=== PATIENT | male | born 1955 | race Caucasian/White ===

== ENCOUNTER 2020-08-10 16:06 | Inpatient (IN) ==
[2020-08-10 16:47] LABS: Basophils % 0.1 % (0.0-0.8); Hematocrit 26.7 VOL% (42.0-52.0); Hemoglobin 8.6 GM/DL (14.0-18.0); Immature Granulocytes % 0.8 %; Immature Granulocytes Absolute 0.11 #; Lymphocytes # 0.2 10*3/uL (1.4-4.0); Lymphocytes % 1.2 % (21.2-54.2); Mean Corpuscular HGB Conc 32.2 GM/DL (32-36); Mean Corpuscular Volume 103.9 FL (87-102); Mean Platelet Volume 10.5 FL (9.6-12.0); Neutrophils % 94.9 % (38.7-73.9); Platelet Count 229 T/CUMM (130-400); Red Blood Count 2.57 MC/CUMM (3.8-5.5); Red Cell Distribution Width 15.1 % (9.3-17.3)
[2020-08-10] MEDS ORDERED: SODIUM CHLORIDE 0.9% 1,000 ML IV STA (16:48)
[2020-08-10 17:07] LABS: INR 1.1; PT Patient Result 11.9 SECS (9.8-11.9); Partial Thromboplastin Time 34.9 SECS (23.9-33.8)
[2020-08-10 17:25] LABS: Albumin 2.4 G/DL (3.4-5.0); Bilirubin,Total 1.3 MG/DL (0.2-1.0); Calcium 7.4 MG/DL (8.5-10.1); Osmolality,Calculated 313.8 MOS/KG (273-304); Total Protein 6.4 G/DL (6.4-8.3)
[2020-08-10 18:15] LABS: Band Neutrophils 1 % (0-10); Lymphocytes 2 % (20-55); Nucleated Red Blood Cells 1 (0-5); Segmented Neutrophils 95 % (50-85); Total Cells Counted 100
[2020-08-10 18:16] LABS: Macrocytosis 1+; Platelet Estimate Adequate
[2020-08-10 18:17] LABS: Anisocytosis Slight
[2020-08-10] MEDS ORDERED: guaiFENesin/DM ER 600-30 MG TABLET PO PRN (21:30)
[2020-08-10] MEDS ORDERED: DEXTROSE 50% 25 GM/50 ML SYRINGE IV PRN (21:30)
[2020-08-10] MEDS ORDERED: hydrALAZINE 20 MG/1 ML VIAL IV PRN (21:30)
[2020-08-10] MEDS ORDERED: GLUCAGON 1 MG VIAL IM PRN (21:30)
[2020-08-10] MEDS ORDERED: ONDANSETRON 4 MG/2 ML VIAL IV PRN (21:30)
[2020-08-10] MEDS ORDERED: ACETAMINOPHEN 325 MG TABLET PO PRN (21:30)
[2020-08-10] MEDS ORDERED: CETIRIZINE 10 MG TABLET PO PRN (21:35)
[2020-08-10] MEDS ORDERED: DEXTROSE 50% 25 GM/50 ML VIAL IV PRN (21:45)
[2020-08-10] MEDS: cefTRIAXone 1,000 MG in SYRINGE 1 EACH IV SCH (22:28)
[2020-08-10] MEDS ORDERED: SODIUM CHLORIDE 0.9% 100 ML IV ONE (22:33)
[2020-08-10 23:10] LABS: Amorphous Crystals,Urine Occasional /HPF (Few); Bilirubin,Urine Negative (Negative); Blood, Urine Moderate mg/dL (Negative); Glucose,Urine (UA) Negative (Negative); Ketones,Urine 5 mg/dL (Negative); Nitrite,Urine Negative (Negative); Protein,Urine >=500 MG/DL; RBC,Urine 18 /HPF (0-4); Squamous Epithelial Cell,Urine Occasional /HPF (0-10); Triple Phosphate Crystal,Urine Few /HPF (Few); Urine Appearance CLOUDY (Clear); Urine Color Yellow (Yellow); Urine Specific Gravity 1.011 (1.001-1.035); Urine Urobilinogen < 2.0 EU/DL (0.2-1.0); WBC,Urine 17 /HPF (0-6)
[2020-08-10] MEDS: SODIUM CHLORIDE 0.45% 1,000 ML IV SCH (23:53)
[2020-08-10] MEDS: SIMVASTATIN 40 MG TABLET PO SCH (23:54)
[2020-08-10] MEDS: ENOXAPARIN 30 MG/0.3 ML SYRINGE SUBCUT SCH (23:54)
[2020-08-10] MEDS: AZITHROMYCIN INJ 500 MG in SODIUM CHLORIDE 0.9% 250 ML IV SCH (23:54)
[2020-08-11] MEDS: ALBUTEROL INHALER 18 GM INH SCH ×4 (00:57→21:00)
[2020-08-11] MEDS ORDERED: cloNIDine 0.1 MG TABLET PO PRN (05:16)
[2020-08-11 05:19] LABS: Basophils % 0.1 % (0.0-0.8); Hematocrit 24.1 VOL% (42.0-52.0); Hemoglobin 7.8 GM/DL (14.0-18.0); Immature Granulocytes % 0.8 %; Immature Granulocytes Absolute 0.11 #; Lymphocytes # 0.4 10*3/uL (1.4-4.0); Lymphocytes % 2.9 % (21.2-54.2); Mean Corpuscular HGB Conc 32.4 GM/DL (32-36); Mean Corpuscular Volume 104.3 FL (87-102); Mean Platelet Volume 9.7 FL (9.6-12.0); Monocytes % 4.1 % (1.7-12.7); Neutrophils % 92.1 % (38.7-73.9); Platelet Count 238 T/CUMM (130-400); Red Blood Count 2.31 MC/CUMM (3.8-5.5); White Blood Count 13.6 T/CUMM (4-12)
[2020-08-11 05:39] LABS: Hypochromasia 2+; Lymphocytes 2 % (20-55); Microcytosis Slight; Ovalocytes Slight; Platelet Estimate Adequate; Segmented Neutrophils 95 % (50-85); Total Cells Counted 100
[2020-08-11 05:46] LABS: Alanine Aminotransferase 13 U/L (16-61); Albumin 2.2 G/DL (3.4-5.0); Alkaline Phosphatase 85 U/L (45-117); Aspartate Amino Transferase 14 U/L (0-37); Bilirubin,Total < 0.39 MG/DL (0.2-1.0); Blood Urea Nitrogen 129 MG/DL (7-18); Calcium 8.1 MG/DL (8.5-10.1); Estimated Glom Filtration Rate 6 ML/MIN; Glucose 74 MG/DL (74-106); HDL Cholesterol 23 MG/DL (40-60); Osmolality,Calculated 315.7 MOS/KG (273-304); Risk Ratio 4.52; Total Protein 6.7 G/DL (6.4-8.3); Triglycerides 161 MG/DL (2-150); VLDL CHOLESTEROL 32.2 MG/DL
[2020-08-11] MEDS ORDERED: MAGNESIUM SULF RIDER 2 GM in PREMIX 1 EACH IV ONE ×2 (08:25→08:34)
[2020-08-11] MEDS: ZINC SULFATE 220 MG CAPSULE PO SCH (09:56)
[2020-08-11] MEDS: SODIUM CHLORIDE 0.45% 1,000 ML IV SCH (09:56)
[2020-08-11] MEDS: PANTOPRAZOLE 40 MG TABLET PO SCH (09:56)
[2020-08-11] MEDS: GABAPENTIN 100 MG CAPSULE PO SCH (09:56)
[2020-08-11] MEDS: ASCORBIC ACID 500 MG TABLET PO SCH ×2 (09:56→20:59)
[2020-08-11] MEDS: ERGOCALCIFEROL 50,000 UNIT CAPSULE PO SCH (09:57)
[2020-08-11] MEDS ORDERED: SODIUM CHLORIDE 0.9% 1,000 ML IV PRN (13:53)
[2020-08-11] MEDS: DEXAMETHASONE 4 MG/1 ML VIAL IV SCH (13:57)
[2020-08-11 14:58] LABS: % Iron Saturation 8.8 % (18-50); Ferritin 513.2 ng/ml (26-388)
[2020-08-11 15:25] LABS: Folate 5.7 NG/ML (5.4-24.0)
[2020-08-11] MEDS ORDERED: EPOETIN ALFA-EPBX 10,000 UNIT/ML VIAL IV PRN (16:18)
[2020-08-11] MEDS: hydrALAZINE 25 MG TABLET PO SCH ×2 (16:28→21:00)
[2020-08-11] MEDS: CYCLOBENZAPRINE 10 MG TABLET PO SCH (20:59)
[2020-08-11] MEDS: ENOXAPARIN 30 MG/0.3 ML SYRINGE SUBCUT SCH (21:00)
[2020-08-11] MEDS: METOPROLOL TARTRATE 25 MG TABLET PO SCH (21:00)
[2020-08-11] MEDS: SIMVASTATIN 40 MG TABLET PO SCH (21:00)
[2020-08-11] MEDS: cefTRIAXone 1,000 MG in SYRINGE 1 EACH IV SCH (22:15)
[2020-08-11] MEDS: SODIUM BICARB INJ 150 MEQ in STERILE WATER INJ 850 ML IV SCH (22:15)
[2020-08-11] MEDS: AZITHROMYCIN INJ 500 MG in SODIUM CHLORIDE 0.9% 250 ML IV SCH (22:16)
[2020-08-12] MEDS: ALBUTEROL INHALER 18 GM INH SCH ×4 (02:09→21:25)
[2020-08-12] MEDS: ASCORBIC ACID 500 MG TABLET PO SCH ×2 (08:00→21:22)
[2020-08-12] MEDS: PANTOPRAZOLE 40 MG TABLET PO SCH (08:00)
[2020-08-12 08:30] LABS: Hepatitis B Core IgM Quant 0.06 Index; Hepatitis B Surface Ag Quant < 0.10 Index; Hepatitis B Surface Ag Result Negative (Negative); Hepatitis C Virus Ab Quant 0.11 Index; Hepatitis C Virus Ab Result Negative (Negative)
[2020-08-12] MEDS: DEXAMETHASONE 4 MG/1 ML VIAL IV SCH (09:29)
[2020-08-12] MEDS: hydrALAZINE 25 MG TABLET PO SCH ×3 (09:29→21:22)
[2020-08-12] MEDS: METOPROLOL TARTRATE 25 MG TABLET PO SCH ×2 (09:29→21:22)
[2020-08-12] MEDS: GABAPENTIN 100 MG CAPSULE PO SCH (09:30)
[2020-08-12 10:20] LABS: INR 1.1; PT Patient Result 11.7 SECS (9.8-11.9)
[2020-08-12 10:38] LABS: Ferritin 455.3 ng/ml (26-388)
[2020-08-12] MEDS: SODIUM CHLORIDE 0.45% 1,000 ML IV SCH (11:49)
[2020-08-12] MEDS: SODIUM BICARB INJ 150 MEQ in STERILE WATER INJ 850 ML IV SCH ×2 (19:03→21:26)
[2020-08-12] MEDS: CYCLOBENZAPRINE 10 MG TABLET PO SCH (21:21)
[2020-08-12] MEDS: cefTRIAXone 1,000 MG in SYRINGE 1 EACH IV SCH (21:23)
[2020-08-12] MEDS: ENOXAPARIN 30 MG/0.3 ML SYRINGE SUBCUT SCH (21:23)
[2020-08-12] MEDS: SIMVASTATIN 40 MG TABLET PO SCH (21:25)
[2020-08-13] MEDS: ALBUTEROL INHALER 18 GM INH SCH ×4 (00:13→18:45)
[2020-08-13] MEDS: SODIUM CHLORIDE 0.45% 1,000 ML IV SCH ×2 (00:20→18:52)
[2020-08-13 06:18] LABS: Basophils % 0.2 % (0.0-0.8); Eosinophils % 0.2 % (0.00-10.9); Hematocrit 25.5 VOL% (42.0-52.0); Hemoglobin 8.8 GM/DL (14.0-18.0); Immature Granulocytes % 2.1 %; Immature Granulocytes Absolute 0.21 #; Lymphocytes # 0.5 10*3/uL (1.4-4.0); Lymphocytes % 4.8 % (21.2-54.2); Mean Corpuscular HGB Conc 34.5 GM/DL (32-36); Mean Corpuscular Volume 94.4 FL (87-102); Mean Platelet Volume 11.2 FL (9.6-12.0); Monocytes % 5.6 % (1.7-12.7); NRBC # 0.05 10*3/uL; Neutrophils % 87.1 % (38.7-73.9); Platelet Count 217 T/CUMM (130-400); White Blood Count 9.9 T/CUMM (4-12)
[2020-08-13 06:25] LABS: Calcium 7.4 MG/DL (8.5-10.1); Osmolality,Calculated 297.2 MOS/KG (273-304)
[2020-08-13 06:30] LABS: Albumin 2.1 G/DL (3.4-5.0); Bilirubin,Total 0.5 MG/DL (0.2-1.0); Calcium 7.3 MG/DL (8.5-10.1); Osmolality,Calculated 295.4 MOS/KG (273-304); Total Protein 6.5 G/DL (6.4-8.3)
[2020-08-13 06:45] LABS: Lymphocytes 4 % (20-55); Nucleated Red Blood Cells 1 (0-5); Platelet Estimate Normal; Segmented Neutrophils 90 % (50-85); Total Cells Counted 100
[2020-08-13 06:46] LABS: Hypochromasia Slight
[2020-08-13] MEDS: PANTOPRAZOLE 40 MG TABLET PO SCH (08:16)
[2020-08-13] MEDS: METOPROLOL TARTRATE 25 MG TABLET PO SCH ×2 (08:16→22:08)
[2020-08-13] MEDS: hydrALAZINE 25 MG TABLET PO SCH ×3 (08:16→22:08)
[2020-08-13] MEDS: GABAPENTIN 100 MG CAPSULE PO SCH (08:16)
[2020-08-13] MEDS: ZINC SULFATE 220 MG CAPSULE PO SCH (08:16)
[2020-08-13] MEDS: ASCORBIC ACID 500 MG TABLET PO SCH ×2 (08:16→22:07)
[2020-08-13] MEDS: DEXAMETHASONE 4 MG/1 ML VIAL IV SCH (08:16)
[2020-08-13] MEDS: SODIUM BICARB INJ 150 MEQ in STERILE WATER INJ 850 ML IV SCH (08:17)
[2020-08-13] MEDS: SIMVASTATIN 40 MG TABLET PO SCH (22:07)
[2020-08-13] MEDS: ZALEPLON 5 MG CAPSULE PO PRN (22:08)
[2020-08-13] MEDS: ENOXAPARIN 30 MG/0.3 ML SYRINGE SUBCUT SCH (22:08)
[2020-08-13] MEDS: CYCLOBENZAPRINE 10 MG TABLET PO SCH (22:08)
[2020-08-13] MEDS: ceFAZolin 1,000 MG in SYRINGE 1 EACH IV SCH (22:08)
[2020-08-14] MEDS: SODIUM BICARB INJ 150 MEQ in STERILE WATER INJ 850 ML IV SCH ×2 (00:42→19:41)
[2020-08-14] MEDS: ALBUTEROL INHALER 18 GM INH SCH ×4 (00:42→18:33)
[2020-08-14 04:51] LABS: Basophils % 0.2 % (0.0-0.8); Eosinophils % 0.4 % (0.00-10.9); Hematocrit 27.3 VOL% (42.0-52.0); Hemoglobin 9.3 GM/DL (14.0-18.0); Immature Granulocytes % 4.9 %; Immature Granulocytes Absolute 0.55 #; Lymphocytes # 0.7 10*3/uL (1.4-4.0); Lymphocytes % 6.5 % (21.2-54.2); Mean Corpuscular HGB Conc 34.1 GM/DL (32-36); Mean Corpuscular Volume 96.5 FL (87-102); Monocytes % 6.6 % (1.7-12.7); NRBC # 0.09 10*3/uL; Neutrophils % 81.4 % (38.7-73.9); Platelet Count 198 T/CUMM (130-400); Red Blood Count 2.83 MC/CUMM (3.8-5.5); Red Cell Distribution Width 16.6 % (9.3-17.3); White Blood Count 11.3 T/CUMM (4-12)
[2020-08-14 05:17] LABS: Albumin 2.1 G/DL (3.4-5.0); Bilirubin,Total 0.6 MG/DL (0.2-1.0); Calcium 7.2 MG/DL (8.5-10.1); Total Protein 6.4 G/DL (6.4-8.3)
[2020-08-14 05:18] LABS: Hypochromasia 1+; Lymphocytes 3 % (20-55); Microcytosis 1+; Ovalocytes Slight; Platelet Estimate Adequate; Segmented Neutrophils 89 % (50-85); Total Cells Counted 100
[2020-08-14] MEDS: hydrALAZINE 25 MG TABLET PO SCH ×3 (09:03→20:47)
[2020-08-14] MEDS: GABAPENTIN 100 MG CAPSULE PO SCH (09:03)
[2020-08-14] MEDS: ASCORBIC ACID 500 MG TABLET PO SCH ×2 (09:03→20:47)
[2020-08-14] MEDS: METOPROLOL TARTRATE 25 MG TABLET PO SCH ×2 (09:03→20:47)
[2020-08-14] MEDS: MULTIVITAMIN (CENTRUM) TABLET PO SCH (09:03)
[2020-08-14] MEDS: PANTOPRAZOLE 40 MG TABLET PO SCH (09:03)
[2020-08-14] MEDS: DEXAMETHASONE 4 MG/1 ML VIAL IV SCH (09:05)
[2020-08-14] MEDS: ceFAZolin 1,000 MG in SYRINGE 1 EACH IV SCH (16:10)
[2020-08-14] MEDS: SODIUM CHLORIDE 0.45% 1,000 ML IV SCH (18:12)
[2020-08-14] MEDS: CYCLOBENZAPRINE 10 MG TABLET PO SCH (20:46)
[2020-08-14] MEDS: ENOXAPARIN 30 MG/0.3 ML SYRINGE SUBCUT SCH (20:47)
[2020-08-14] MEDS: SIMVASTATIN 40 MG TABLET PO SCH (20:47)
[2020-08-14] MEDS: ZALEPLON 5 MG CAPSULE PO PRN (23:18)
[2020-08-15] MEDS: ALBUTEROL INHALER 18 GM INH SCH ×4 (01:05→18:25)
[2020-08-15 06:49] LABS: Basophils % 0.3 % (0.0-0.8); Eosinophils # 0.1 10*3/uL (0.0-0.87); Eosinophils % 0.8 % (0.00-10.9); Hematocrit 27.9 VOL% (42.0-52.0); Hemoglobin 9.2 GM/DL (14.0-18.0); Immature Granulocytes % 5.4 %; Immature Granulocytes Absolute 0.59 #; Lymphocytes % 9.3 % (21.2-54.2); Mean Corpuscular Volume 98.6 FL (87-102); Monocytes % 6.6 % (1.7-12.7); Neutrophils % 77.6 % (38.7-73.9); Platelet Count 244 T/CUMM (130-400); Red Blood Count 2.83 MC/CUMM (3.8-5.5); Red Cell Distribution Width 16.8 % (9.3-17.3)
[2020-08-15 07:15] LABS: Calcium 6.8 MG/DL (8.5-10.1); Osmolality,Calculated 304.8 MOS/KG (273-304)
[2020-08-15] MEDS: DEXAMETHASONE 4 MG/1 ML VIAL IV SCH (08:18)
[2020-08-15] MEDS: ceFAZolin 1,000 MG in SYRINGE 1 EACH IV SCH (08:20)
[2020-08-15] MEDS: METOPROLOL TARTRATE 25 MG TABLET PO SCH ×2 (08:25→20:23)
[2020-08-15] MEDS: PANTOPRAZOLE 40 MG TABLET PO SCH (08:25)
[2020-08-15] MEDS: hydrALAZINE 25 MG TABLET PO SCH ×3 (08:25→20:22)
[2020-08-15] MEDS: GABAPENTIN 100 MG CAPSULE PO SCH (08:25)
[2020-08-15] MEDS: ASCORBIC ACID 500 MG TABLET PO SCH ×2 (08:25→20:22)
[2020-08-15] MEDS: ZINC SULFATE 220 MG CAPSULE PO SCH (08:25)
[2020-08-15] MEDS: MULTIVITAMIN (CENTRUM) TABLET PO SCH (08:25)
[2020-08-15 08:47] LABS: Band Neutrophils 1 % (0-10); Lymphocytes 8 % (20-55); Metamyelocytes 2 %; Nucleated Red Blood Cells 1 (0-5); Polychromasia Slight; Segmented Neutrophils 85 % (50-85); Total Cells Counted 100
[2020-08-15 08:48] LABS: Hypochromasia 3+; Microcytosis 2+; Ovalocytes Few; Platelet Estimate Normal; Schistocytes Few; Target Cells Few; Tear Drop Cells Few
[2020-08-15] MEDS: SODIUM BICARB INJ 150 MEQ in STERILE WATER INJ 850 ML IV SCH (11:13)
[2020-08-15] MEDS: CYCLOBENZAPRINE 10 MG TABLET PO SCH (20:22)
[2020-08-15] MEDS: SIMVASTATIN 40 MG TABLET PO SCH (20:23)
[2020-08-15] MEDS: ENOXAPARIN 30 MG/0.3 ML SYRINGE SUBCUT SCH (21:11)
[2020-08-15] MEDS: ZALEPLON 5 MG CAPSULE PO PRN (23:42)
[2020-08-16] MEDS: ALBUTEROL INHALER 18 GM INH SCH ×4 (01:30→20:14)
[2020-08-16] MEDS: ceFAZolin 1,000 MG in SYRINGE 1 EACH IV SCH ×2 (02:31→19:30)
[2020-08-16 06:05] LABS: Basophils % 0.2 % (0.0-0.8); Eosinophils # 0.2 10*3/uL (0.0-0.87); Eosinophils % 2.1 % (0.00-10.9); Hematocrit 30.2 VOL% (42.0-52.0); Hemoglobin 9.9 GM/DL (14.0-18.0); Immature Granulocytes % 5.7 %; Immature Granulocytes Absolute 0.62 #; Lymphocytes # 1.1 10*3/uL (1.4-4.0); Lymphocytes % 10.5 % (21.2-54.2); Mean Corpuscular HGB Conc 32.8 GM/DL (32-36); Mean Corpuscular Volume 100.7 FL (87-102); Mean Platelet Volume 11.2 FL (9.6-12.0); NRBC # 0.13 10*3/uL; Neutrophils % 72.5 % (38.7-73.9); Platelet Count 224 T/CUMM (130-400); Red Cell Distribution Width 17.2 % (9.3-17.3); White Blood Count 10.8 T/CUMM (4-12)
[2020-08-16 06:34] LABS: Calcium 7.4 MG/DL (8.5-10.1); Osmolality,Calculated 295.8 MOS/KG (273-304)
[2020-08-16] MEDS: GABAPENTIN 100 MG CAPSULE PO SCH (09:29)
[2020-08-16] MEDS: PANTOPRAZOLE 40 MG TABLET PO SCH (09:30)
[2020-08-16] MEDS: hydrALAZINE 25 MG TABLET PO SCH ×4 (09:30→20:14)
[2020-08-16] MEDS: MULTIVITAMIN (CENTRUM) TABLET PO SCH (09:30)
[2020-08-16] MEDS: METOPROLOL TARTRATE 25 MG TABLET PO SCH ×2 (09:30→20:15)
[2020-08-16] MEDS: ASCORBIC ACID 500 MG TABLET PO SCH ×2 (09:30→20:14)
[2020-08-16] MEDS: DEXAMETHASONE 4 MG/1 ML VIAL IV SCH (09:31)
[2020-08-16 12:00] LABS: Band Neutrophils 1 % (0-10); Lymphocytes 14 % (20-55); Polychromasia Slight; Segmented Neutrophils 76 % (50-85); Total Cells Counted 100
[2020-08-16 12:01] LABS: Platelet Estimate Normal
[2020-08-16] MEDS: HEPARIN 5,000 UNIT/1 ML VIAL SUBCUT SCH ×2 (13:13→20:15)
[2020-08-16] MEDS: SIMVASTATIN 40 MG TABLET PO SCH (20:14)
[2020-08-16] MEDS: CYCLOBENZAPRINE 10 MG TABLET PO SCH (20:15)
[2020-08-16] MEDS: ZALEPLON 5 MG CAPSULE PO PRN (22:00)
[2020-08-17] MEDS: ALBUTEROL INHALER 18 GM INH SCH ×4 (01:30→19:01)
[2020-08-17] MEDS: hydrALAZINE 25 MG TABLET PO SCH ×4 (13:03→20:13)
[2020-08-17] MEDS: MULTIVITAMIN (CENTRUM) TABLET PO SCH (13:07)
[2020-08-17] MEDS: GABAPENTIN 100 MG CAPSULE PO SCH (13:07)
[2020-08-17] MEDS: METOPROLOL TARTRATE 25 MG TABLET PO SCH ×2 (13:07→20:12)
[2020-08-17] MEDS: ASCORBIC ACID 500 MG TABLET PO SCH ×2 (13:07→20:12)
[2020-08-17] MEDS: PANTOPRAZOLE 40 MG TABLET PO SCH (13:08)
[2020-08-17] MEDS: HEPARIN 5,000 UNIT/1 ML VIAL SUBCUT SCH ×2 (13:08→20:13)
[2020-08-17] MEDS: DEXAMETHASONE 4 MG/1 ML VIAL IV SCH (13:08)
[2020-08-17] MEDS: ceFAZolin 1,000 MG in SYRINGE 1 EACH IV SCH (15:35)
[2020-08-17] MEDS: CYCLOBENZAPRINE 10 MG TABLET PO SCH (20:12)
[2020-08-17] MEDS: SIMVASTATIN 40 MG TABLET PO SCH (20:12)
[2020-08-17] MEDS: ZALEPLON 5 MG CAPSULE PO PRN (22:14)
[2020-08-18 00:43] LABS: Bacteria,Urine Moderate /HPF (Few); Bilirubin,Urine Negative (Negative); Blood, Urine Negative (Negative); Glucose,Urine (UA) 150 mg/dL (Negative); Ketones,Urine Negative (Negative); Mucus,Urine Occasional /LPF (Occasional); Nitrite,Urine Negative (Negative); Protein,Urine >=500 MG/DL; RBC,Urine 2 /HPF (0-4); Urine Appearance Slightly Hazy (Clear); Urine Color Yellow (Yellow); Urine Urobilinogen < 2.0 EU/DL (0.2-1.0); WBC,Urine 7 /HPF (0-6)
[2020-08-18] MEDS: ALBUTEROL INHALER 18 GM INH SCH ×4 (01:19→18:32)
[2020-08-18] MEDS: ceFAZolin 1,000 MG in SYRINGE 1 EACH IV SCH (09:20)
[2020-08-18] MEDS: PANTOPRAZOLE 40 MG TABLET PO SCH (09:21)
[2020-08-18] MEDS: METOPROLOL TARTRATE 25 MG TABLET PO SCH ×2 (09:21→22:11)
[2020-08-18] MEDS: hydrALAZINE 25 MG TABLET PO SCH ×4 (09:21→22:09)
[2020-08-18] MEDS: MULTIVITAMIN (CENTRUM) TABLET PO SCH (09:21)
[2020-08-18] MEDS: ASCORBIC ACID 500 MG TABLET PO SCH ×2 (09:21→22:11)
[2020-08-18] MEDS: ERGOCALCIFEROL 50,000 UNIT CAPSULE PO SCH (09:22)
[2020-08-18] MEDS: DEXAMETHASONE 4 MG/1 ML VIAL IV SCH (09:22)
[2020-08-18] MEDS: GABAPENTIN 100 MG CAPSULE PO SCH (09:22)
[2020-08-18] MEDS: HEPARIN 5,000 UNIT/1 ML VIAL SUBCUT SCH ×2 (09:23→22:09)
[2020-08-18] MEDS: CYCLOBENZAPRINE 10 MG TABLET PO SCH (22:10)
[2020-08-18] MEDS: SIMVASTATIN 40 MG TABLET PO SCH (22:11)
[2020-08-18] MEDS: ZALEPLON 5 MG CAPSULE PO PRN (22:19)
[2020-08-19] MEDS: ALBUTEROL INHALER 18 GM INH SCH ×3 (01:42→13:20)
[2020-08-19] MEDS: ceFAZolin 1,000 MG in SYRINGE 1 EACH IV SCH (03:29)
[2020-08-19] MEDS: DEXAMETHASONE 4 MG/1 ML VIAL IV SCH (11:21)
[2020-08-19] MEDS: hydrALAZINE 25 MG TABLET PO SCH ×2 (11:21→13:20)
[2020-08-19] MEDS: MULTIVITAMIN (CENTRUM) TABLET PO SCH (11:21)
[2020-08-19] MEDS: PANTOPRAZOLE 40 MG TABLET PO SCH (11:22)
[2020-08-19] MEDS: GABAPENTIN 100 MG CAPSULE PO SCH (11:22)
[2020-08-19] MEDS: HEPARIN 5,000 UNIT/1 ML VIAL SUBCUT SCH (11:22)
[2020-08-19] MEDS: METOPROLOL TARTRATE 25 MG TABLET PO SCH (11:22)
[2020-08-19] MEDS: ASCORBIC ACID 500 MG TABLET PO SCH (11:23)
[2020-08-19 12:34] VITALS: BP 147/75
== END 2020-08-19 14:47 | disposition home or self-care (01) | DRG 871 ==
LOC: EDBD → EDUNIT# → N.ED 16:06 → N.EDINP 21:26 → SUATTDRO 21:26 → N.2E 22:24 → N.5E 08-11 12:43
PROVIDERS: ADMIT Internal Medicine; ATTEND Internal Medicine
PROC: IRTHORA (2020-08-14 10:54)